=== PATIENT | male | born 1945 | race Caucasian/White ===

== ENCOUNTER 2021-10-12 22:47 | Emergency (ER) | payer MEDICARE ==
[~2021-10-12] VITALS: Ht 165.1 cm; Wt 52.3 kg
[2021-10-12 23:15] LABS: WHITE BLOOD COUNT 13.9 X10'3 (4.5-11.0)
[2021-10-12 23:16] LABS: BASOPHILS # (AUTO) 0.2 X10'3 (0-0.2); BASOPHILS % (AUTO) 1.1 % (0-1); EOSINOPHILS # (AUTO) 0.6 X10'3 (0-0.9); EOSINOPHILS % (AUTO) 4.5 % (0-6); HEMATOCRIT 44.2 % (42.0-52.0); HEMOGLOBIN 15.2 g/dl (14.0-17.9); LYMPHOCYTES # (AUTO) 4.2 X10'3 (1.1-4.8); MEAN CORPUSCULAR HEMOGLOBIN 31.4 PG (27.0-31.0); MEAN CORPUSCULAR HGB CONC 34.3 g/dL (33.0-36.5); MEAN CORPUSCULAR VOLUME 91.5 FL (78-98); MONOCYTES # (AUTO) 1.2 X10'3 (0-0.9); MONOCYTES % (AUTO) 8.9 % (2-12); NEUTROPHILS # (AUTO) 7.7 X10'3 (1.8-7.7); NEUTROPHILS % (AUTO) 55.5 % (42-75); PLATELET COUNT 487 X10'3 (140-440); RED BLOOD COUNT 4.83 X10'6 (4.70-6.10); RED CELL DISTRIBUTION WIDTH 14.1 % (11.5-14.5)
[2021-10-12 23:18] LABS: D-DIMER 0.31 MG/L FEU (0-0.50)
[2021-10-12 23:22] LABS: ALANINE AMINOTRANSFERASE 20 U/L (12-78); ALBUMIN 4.5 G/DL (3.4-5.0); ALBUMIN/GLOBULIN RATIO 1.3 (1.1-1.5); ALKALINE PHOSPHATASE 101 IU/L (46-116); ANION GAP 11 (8-16); ASPARTATE AMINO TRANSFERASE 16 U/L (10-37); BILIRUBIN,TOTAL 0.4 MG/DL (0.1-1.0); BLOOD UREA NITROGEN 18 MG/DL (7-18); BUN/CREATININE RATIO 12.1 (5.4-32.0); CALCIUM 9.8 MG/DL (8.5-10.1); CHLORIDE 105 MMOL/L (99-107); CREATININE 1.49 MG/DL (0.60-1.10); GLUCOSE 99 MG/DL (70-104); POTASSIUM 4.1 MMOL/L (3.5-5.1); SODIUM 139 MMOL/L (135-145); TOTAL CARBON DIOXIDE 23.5 MMOL/L (24-32); TOTAL PROTEIN 8.1 G/DL (6.4-8.2); eGFR 46 ML/MIN
[2021-10-12] MEDS ORDERED: albuterol 2.5 MG/3 ML nebule NEB ONE (23:25)
[2021-10-12 23:29] LABS: LIPASE 105 U/L (73-393)
[2021-10-12] MEDS ORDERED: iohexol 300mg/ml 100ml inj. ONE (23:37)
[2021-10-13 02:52] VITALS: BP 113/82
[2021-10-13] MEDS ORDERED: DEXA6TAB6 PO (02:53)
[2021-10-13] MEDS ORDERED: ALBU8HFA PO (02:53)
== END 2021-10-13 03:13 | disposition home or self-care (01) ==
LOC: ER 22:48
DX: J44.1 Chronic obstructive pulmonary disease with (acute) exacerbation (principal); Z20.822 Contact with and (suspected) exposure to COVID-19; R10.11 Right upper quadrant pain; R03.0 Elevated blood-pressure reading, without diagnosis of hypertension; R00.0 Tachycardia, unspecified
CPT/HCPCS: 36415; 71045; 74177; 80053; 83690; 83880; 84484; 85025; 85379; 87635; 93005; 94640; 99285; C9803; Q9967; 94760